=== PATIENT | female | born 1975 | race Two or more races ===

== ENCOUNTER 2017-09-28 07:18 | Emergency (ER) | payer MEDICAID ==
[~2017-09-28] VITALS: Ht 149.9 cm; Wt 49.9 kg
[2017-09-28 07:21] VITALS: BP 124/91
[2017-09-28] MEDS ORDERED: ACETAMINOPHEN ES 500 MG TABLET ONE (07:48)
[2017-09-28] MEDS ORDERED: ACETAMINOPHEN ES 500 MG TABLET PO ONE (08:00)
== END 2017-09-28 08:11 | disposition home or self-care (01) ==
LOC: ER 07:20
DX: R51 Headache (principal); E03.9 Hypothyroidism, unspecified; E11.9 Type 2 diabetes mellitus without complications; F17.200 Nicotine dependence, unspecified, uncomplicated; F10.10 Alcohol abuse, uncomplicated; Z79.4 Long term (current) use of insulin
CPT/HCPCS: 99282; A4606; Z7610

== ENCOUNTER 2021-09-10 10:28 | Emergency (ER) | payer OTHER ==
[~2021-09-10] VITALS: Ht 149.9 cm; Wt 41.7 kg
[2021-09-10 10:50] VITALS: BP 128/81
--- NOTE | 2021-09-10 11:00 | NUR ---
BIBS FOR RIGHT EAR PAIN SINCE YESTERDAY. RATES 04/17. DENIES CHANGE IN HEARTING. WILL CONTINUE TO MONITOR THE PATIENT.
[2021-09-10] MEDS ORDERED: DOCUSATE SODIUM LIQ 100 MG/10 ML UDC ONE (13:22)
[2021-09-10] MEDS ORDERED: DOCUSATE SODIUM LIQ 100 MG/10 ML UDC NG ONE (13:30)
--- NOTE | 2021-09-10 13:30 | NUR ---
[facility] WAS USED FOR RIGHT EAR IRRIGATION.
[2021-09-10] MEDS ORDERED: CARB15DR12 RIGHT EAR (14:12)
[2021-09-10] MEDS ORDERED: NEOM10DR46 RIGHT EAR (14:12)
--- NOTE | 2021-09-10 14:22 | NUR ---
Patient discharged to home in stable condition. Written and verbal after care instructions given. Patient verbalizes understanding of instruction.
== END 2021-09-10 14:23 | disposition home or self-care (01) ==
LOC: ER 10:56
DX: J06.9 Acute upper respiratory infection, unspecified (principal); Z20.822 Contact with and (suspected) exposure to COVID-19; H60.91 Unspecified otitis externa, right ear; H61.21 Impacted cerumen, right ear; E03.9 Hypothyroidism, unspecified; F17.200 Nicotine dependence, unspecified, uncomplicated
CPT/HCPCS: 69209; 99283; 99406; C9803; U0003